=== PATIENT | female | born 1990 | race Caucasian/White ===

== ENCOUNTER → 2019-02-11 13:51 | Outpatient (CLI) | payer MEDICAID, SELFPAY ==
[2019-02-11 09:33] VITALS: BMI 19.6
[2019-02-11 18:17] LABS: Chlamydia Trachomatis by PCR Negative (Negative); Neisserai gonorrhoeae by PCR Negative (Negative); Probe Check PASS; Sample Adequacy Control PASS; Specimen Processing Control PASS
[2019-02-18 10:35] LABS: HPV Reflexed? NOT INDICATED
== END ==
PROVIDERS: PCP Family Medicine; Visit Provider Nurse Practitioner Women's Health
DX: Z11.3 Encounter for screening for infections with a predominantly sexual mode of transmission (principal); Z12.4 Encounter for screening for malignant neoplasm of cervix
CPT/HCPCS: 87491; 87591; 88175; G0145

== ENCOUNTER 2020-10-19 21:34 | Emergency (ER) | payer MEDICAID, SELFPAY ==
[2019-05-06 10:13] VITALS: BMI 20.3
[2020-10-19 21:36] VITALS: BP 128/84; PULSE 96; RESP 14; TEMP 36.8; O2SAT 100; BMI 21.0
[2020-10-19] MEDS: MethylPREDNISolone 125 MG/2 ML Vial IV (21:57)
[2020-10-19] MEDS: DiphenhydrAMINE 50 MG/ML Syringe 12.5 MG IV (21:57)
[2020-10-19] MEDS: Famotidine 200 MG/20 ML MDV 20 MG in 0.9% Normal Saline (Pres. free 8 ML 300 MG IV (21:59)
--- NOTE | 2020-10-19 22:04 | EX.ED.DYSGE1 ---
HPI History of Present Illness Chief Complaint: Allergic Reaction Informant: patient Narrative Narrative: 30-year-old female was eating celery that was on a plate with some dry rubs chicken wings. She states that she has a peanut allergy but has had the celery at this restaurant before. She began to itch on her palms and her feet and vomited and now states that she has diffuse erythematous rash across her body. She took 50 mg of Benadryl just prior to arrival here in the emergency department [facility], [facility] PFS Home Medications loratadine 10 mg tablet 10 mg PO DAILY 02/11/19 [History Last Taken Unknown] albuterol sulfate 90 mcg/actuation aerosol inhaler 1 inh INHALATION ONCE 05/06/19 [History Last Taken Unknown] levonorgestrel 14 mcg/24 hrs (3 yrs) 13.5 mg intrauterine device 1 device INTRAUTERINE ONCE 05/06/19 [History Last Taken Unknown] prednisone 60 mg PO DAILY #12 tablet 10/19/20 [Rx Last Taken Unknown] Allergy/AdvReac Type Severity Reaction Status Date / Time acetaminophen Allergy Mild nausea, Verified 10/19/20 21:35 watery mouth peanut Allergy Hives Verified 10/19/20 21:35 Family History Mother Thyroid disorder Social History Smoking Status: Never smoker alcohol intake: current details: occasionally substance use type: does not use caffeine: Yes what type of physical activity do you participate in: running frequency: 1-2 times per week seatbelt use: always do you feel safe at home: Yes additional social history: Single-[employer]/[place] ROS ROS ED Constitutional Constitutional ED: Denies chills or weight loss Eyes Eyes: Denies change in vision or diplopia ENT ENT ED: Denies ear pain, rhinorrhea or sore throat Cardiovascular Cardiovascular: Denies chest pain, orthopnea, palpitations or racing heartbeat Respiratory/Chest Respiratory/Chest: Denies cough, dyspnea or orthopnea Gastrointestinal Gastrointestinal: Denies abdominal pain, diarrhea, nausea or vomiting Genitourinary Genitourinary ED: Denies dysuria, hematuria or urinary frequency Musculoskeletal Musculoskeletal: Denies arthralgias or myalgias Integumentary Reports rash; Denies abscess Neurologic Neurologic: Denies headache(s) or weakness Psychiatric Psychiatric: Denies anxiety, depression, suicidal ideation or suicidal thoughts Endocrine Endocrinology: Denies polydipsia, polyphagia or polyuria Allergic/Immunologic Allergic/Immunologic ED: Denies mouth swelling, tongue swelling or urticaria EXAM Physical Exam Const Vital Signs: 10/19/20 21:36 10/19/20 22:34 Temperature 98.2 F Temperature Source Oral Pulse Rate 96 81 Respiratory Rate 14 17 Blood Pressure 128/84 H 109/74 Blood Pressure Mean 98 85 Pulse Ox 100 100 Oxygen Delivery Method Room Air Room Air Positive well nourished and well developed General Appearance ED: well developed HEENT Reports normocephalic, head/scalp atraumatic and moist mucous membranes HEENT Narrative: I do not appreciate any uvular or tongue swelling. Eyes PERRL and EOMs intact bilaterally Eyes Narrative: Injected conjunctiva Neck no lymphadenopathy, supple and no JVD Resp normal respiratory effort and clear to auscultation bilaterally Cardio regular rate, regular rhythm and no murmurs GI normal to inspection, nondistended, normoactive bowel sounds and non-tender Palpation: soft Back/Spine no CVA tenderness and normal ROM Extremity normal to inspection General Extremety ED: Negative for edema General Extremity: Negative for edema Neuro oriented x3 and CN's II-XII intact bilaterally Sensorium / Orientation: alert Motor Exam: strength 5/5 throughout Psych mental status grossly normal Mood & Affect: Negative for depressed or tearful Skin no wounds Skin Narrative: Patient has a diffuse erythematous rash across her body extending down to the arms and the legs MDM MDM MDM Narrative Medical decision making narrative: Patient received Pepcid Solu-Medrol and Benadryl here in the department. She was observed. At 90 minutes of observation the patient's no longer having any rash. She is breathing normally. There is no facial swelling or oropharyngeal swelling. She will be observed an additional 30 minutes and if doing well we can discharge her home. I will write for her to have prednisone at home continued Benadryl return if worsening or concerns Discharge Plan Triage Chief Complaint: Allergic Reaction ED Provider: Jewel Canas Dx/Rx/DC Orders Clinical Impression: Allergic reaction to food Instructions: ED Food Allergy Prescriptions: New prednisone 20 MG tablet 60 mg PO DAILY Qty: 12 RF: 0 No Action loratadine 10 mg tablet 10 mg PO DAILY RF: 0 Rosaline 14 mcg/24 hrs (3 yrs) 13.5 mg intrauterine device 1 device intrauterine ONCE RF: 0 albuterol sulfate [ProAir HFA] 90 mcg/actuation HFA aerosol inhaler 1 inh INHALATION ONCE RF: 0 Primary Care Provider: Jessica Cedeno Referrals: Jessica Cedeno MD [Primary Care Provider] - As Needed
[2020-10-19 22:34] VITALS: BP 109/74; PULSE 81; RESP 17; O2SAT 100
[2020-10-19 23:35] VITALS: BP 111/96; PULSE 83; RESP 14; O2SAT 99
== END 2020-10-19 23:36 | disposition home or self-care (01) ==
PROVIDERS: Emergency Provider Emergency Medicine; PCP Family Medicine
DX: T78.1XXA Other adverse food reactions, not elsewhere classified, initial encounter (principal); X58.XXXA Exposure to other specified factors, initial encounter
CPT/HCPCS: 96374; 96375; 99284; J7030; A4216; J3490

== ENCOUNTER 2021-09-15 15:00 | Outpatient (RCR) | payer MEDICAID, SELFPAY ==
--- NOTE | 2021-08-16 16:08 | HP.PTEVAL ---
Patient's Visit Information YUMIKO SOSA is a 31 year old F referred to Physical Therapy by ROSHNI Albrecht with a diagnosis of L knee patellofemoral syndrome. Date of Evaluation: 08/16/21 Physical Therapist: Jairo Cobb, PT, ATC - Visit Plan Frequency: 2-3x /Week Duration: 2-4 Weeks Plan: Issue and instruct pt on HEP of LE stretching and core strenthening - Subjective L knee has been sore for over one month. Pt reports she has been a runner ever since high school, and notes she believes this may be what has been causing her pain. Pt reports her L knee pain is always on the lateral aspect of he3r L knee. Pt denies PMHx of this type of pain. No tingling or numbness in L LE. No sleep difficulty at this time secondary to pain. 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 Pt reports there are a lot of steps at work which she has to negotiate often. Pt reports her major complaint is that she would like to be able to run again at this time without being limited secondary to pain. L knee does not pop/click/locj up/or give out. Pt reports she did have xrays at that time which revealed no sig. findings. 0/10 pain while sitting here at rest, 8/10 pain at worst - Pain L knee Pain Intensity (Out of 10): 0 Pain Intensity Range: 8 - Objective Neuro: B LE sensation is WNL to light touch. B patellar reflex= 2/3. Palpation: Pt is sore with pressure on her L patella. No obvious deformity at this time. No crepitus with AROM. ROM: R knee 0-150, L knee 0-150. MMT: R knee flex= 26, ext= 29; L knee flex= 26, ext= 30 #F. Special tests: Pos Mcconnels sign, pos 90/90, Pos Trendelenburg sign - Balance/Special Test Scores Lower Extremity Functional Score: 64 - Goals Goal 1:: I with a HEP of LE stretching and core strenthening Goal Time Frame: 2-4 Weeks Goal 2:: Increase L LE strength x 5 #F to aid with stair negotiation Goal Time Frame: 2-4 Weeks - Rehabilitation Potential Physical Therapy Diagnosis: L knee pain and limited flexibility secondary to patellofemoral syndrome Rehabilitation Potential: Good - Anticipated Interventions Patient/Client Instruction: Educate patient on: Condition, Plan of Care For the Purpose of:: To improve self management Therapeutic Exercise to Include: Strength training, Endurance training, Balance training, Flexibilty training, Dynamic Lumbar Stabilization For the Purpose of:: To decrease pain, To increase ROM, To improve muscle performance and motor function Thank you for the opportunity to evaluate your patient. For Medicare and Medicare HMO plans, please review the plan of care and approve it. It will need to be FAXED BACK to us at [phone] for Medicare purposes. For Medicare only, by signing this I certify the plan of care. Please let me know if there are questions or concerns regarding this plan of care. Physician Signature: Date:
--- NOTE | 2021-09-15 15:26 | HP.PTDCSUM ---
It has been my pleasure to treat YUMIKO SOSA referred by ROSHNI Albrecht, with the diagnosis of L knee patellofemoral syndrome for a total of 4 visit(s). Discharge Date: Please see the following information for a summary of their discharge status. Subjective: I dont have any pain today. L knee Pain Intensity (Out of 10): 0 % Improvement: 95 Objective/Function: 0/10 pain this date. L knee flex= 30, ext= 30 #F. Pt is I with HEP. Rx goals achieved Goal 1:: I with a HEP of LE stretching and core strenthening Goal Progress: Goal Met Goal 2:: Increase L LE strength x 5 #F to aid with stair negotiation Goal Progress: Goal Met Plan: Discharge If there are questions or concerns regarding this patient's physical therapy, please feel free to call me at [phone]. Thank you for the referral of this patient. Sincerely, Jairo Cobb, PT, ATC Balance/Gait/Functional tests - Balance/Special Test Scores Oswestry Low Back Score: 0 Lower Extremity Functional Score: 64
== END 2021-09-15 19:00 | disposition home or self-care (01) ==
LOC: PT 15:00
PROVIDERS: PCP Family Medicine; Referring Provider Physician Assistant; Visit Provider Physician Assistant
DX: M22.2X2 Patellofemoral disorders, left knee (principal)
CPT/HCPCS: 97110; 97161; 97164

== ENCOUNTER → 2022-03-14 | Outpatient (CLI) | payer MEDICAID, SELFPAY ==
[2022-03-26 16:13] LABS: HPV APTIMA, High Risk Negative (Negative)
== END | disposition home or self-care (01) ==
LOC: LABSPEC 16:33
PROVIDERS: PCP Family Medicine; Visit Provider Nurse Practitioner Women's Health
DX: Z12.4 Encounter for screening for malignant neoplasm of cervix (principal)
CPT/HCPCS: 87624; 88175; G0145

== ENCOUNTER 2024-04-10 12:07 | Emergency (ER) | payer MEDICAID, SELFPAY ==
[2024-04-10 12:08] VITALS: BP 134/90; PULSE 93; RESP 16; TEMP 36.8; O2SAT 100; BMI 20.2
--- NOTE | 2024-04-10 12:54 | CT_ITS ---
STUDY: CT BRAIN WITHOUT CONTRAST REASON FOR EXAM: Female, 34 years old. 34-year-old female no signal past medical history. Was drinking on Saturday fell hit her head. Said she has had some dizziness and headache posteriorly since that time. Was seen in urgent care and referred to the emergency department. She cannot remember if she lost consciousness. There is no family history of intracranial bleeds or aneurysms. She has no weakness or numbness to her upper or lower extremities. No neck pain RADIATION DOSAGE (If Supplied By Facility): CTDIvol = ( 47.06 ) mGy, DLP = ( 890.33 ) mGycm TECHNIQUE: Transaxial CT imaging of the brain was performed without administration of intravenous contrast material. Individualized dose optimization techniques were used for this CT. COMPARISON: None. FINDINGS: Major intracranial venous sinuses: No abnormal hyperdensity MCA and basilar arteries assessment: No abnormal hyperdensity No visualized extra-axial fluid collection or subdural hemorrhage. Normal soft tissue structures. Normal calvarium. There is asymmetry of the ventricles consistent with an anatomic variant. Normal white matter tracts of the cerebral hemispheres. Normal basal ganglia and thalami. Normal brainstem. Normal cerebellum. There is no intracranial hemorrhage. There are no findings of an acute ischemic infarction. Moderate size mucus retention cyst noted in the left maxillary sinus. CT/Brain/Head without Contrast IMPRESSION: 1. Normal unenhanced CT scan of the brain. Recommendations: * Unresolved symptoms should be further assessed/pursued with neurology consult and evaluation * Advanced imaging including brain MRI, CTA, and CT brain perfusion should also be obtained if there are concerns for acute ischemia, possible malignancy, and other concerning processes or if clinical symptoms remain unresolved or worsen. Electronically Signed: Ruben Wolfe MD at 13:27 EST ,
--- NOTE | 2024-04-10 12:54 | EX.ED.DYSGE1 ---
HPI History of Present Illness Chief Complaint: Head Injury Informant: patient Onset/Context/Timing Onset: Days Context: Sudden Onset Timing: Continuous Current Severity: Mild Maximum Severity: Mild Narrative Narrative: 34-year-old female no signal past medical history. Was drinking on Saturday fell hit her head. Said she has had some dizziness and headache posteriorly since that time. Was seen in urgent care and referred to the emergency department. She cannot remember if she lost consciousness. There is no family history of intracranial bleeds or aneurysms. She has no weakness or numbness to her upper or lower extremities. No neck pain. Prior similar symptoms: Yes Recent Illness/Hospitalization: No PFSH PFS Medical History Asthma Seasonal allergies Home Medications ?Medication ?Instructions ?Recorded ?Last Taken ?Type loratadine 10 mg tablet 10 mg PO DAILY 02/11/19 Unknown History albuterol sulfate 90 mcg/actuation 1 inh inhalation ONCE 05/06/19 Unknown History aerosol inhaler (ProAir HFA) meloxicam 15 mg tablet 15 mg PO DAILY #30 tabs 08/09/21 Unknown Rx Allergy/AdvReac Type Severity Reaction Status Date / Time peanut Allergy Hives Verified 04/10/24 12:10 acetaminophen AdvReac Mild nausea, Verified 04/10/24 12:10 watery mouth doxycycline AdvReac Mild Vomiting Verified 04/10/24 12:10 Family History Mother Thyroid disorder Surgical History [place] teeth extracted Social History Smoking Status: Current some day smoker tobacco type: cigarettes alcohol intake: current details: occasionally substance use type: does not use caffeine: Yes what type of physical activity do you participate in: running frequency: 1-2 times per week seatbelt use: always do you feel safe at home: Yes additional social history: Single-[email or web address] ROS ROS ED ROS Narrative Headache no recent illness. No nausea or vomiting. No visual change. Constitutional Constitutional ED: Denies chills or fever(s) Eyes Eyes: Denies blurry vision ENT ENT ED: Denies ear pain Cardiovascular Cardiovascular: Denies chest pain Respiratory/Chest Respiratory/Chest: Denies cough or dyspnea Gastrointestinal Gastrointestinal: Denies abdominal pain Genitourinary Genitourinary ED: Denies dysuria or hematuria Musculoskeletal Musculoskeletal: Denies arthralgias Integumentary Denies abscess Neurologic Neurologic: Reports headache(s); Denies paresthesias or weakness Psychiatric Psychiatric: Denies anxiety or depression Endocrine Endocrinology: Denies cold intolerance Hematologic/Lymphatic Hematologic/Lymphatic: Reports none Allergic/Immunologic Allergic/Immunologic ED: Denies mouth swelling, tongue swelling or urticaria EXAM Physical Exam Narrative Exam Narrative: Well-appearing 34-year-old female. Vital signs stable afebrile. H EENT exam pupils round reactive light extra motions are intact. No signs of trauma to her face or scalp. Nontender no edema. No bruising or lacerations. TMs are normal bilaterally. No hemotympanum. No dental injury. Neck nontender full range of motion. Full flexion extension. Trachea midline. Back and spine nontender. Lungs clear. Heart regular rhythm no murmur. Chest wall ribs nontender. Abdomen soft nontender. Moving all 4 extremities. 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 Dorsi plantarflexion intact. Normal range of motion. No deformity or tenderness. Neurologically she is awake and alert. GCS of 15. Fingertip to nose within normal limits. No drift of either upper or lower extremities. Normal commercial real estate paralegal strength. Normal dorsi plantarflexion. Const Vital Signs: 04/10/24 12:08 04/10/24 12:51 Temperature 98.2 F Temperature Source Oral Pulse Rate 93 Respiratory Rate 16 Respiratory Effort Normal Respiratory Depth Normal Respiratory Pattern Normal Blood Pressure 134/90 H Blood Pressure Mean 104 Pulse Ox 100 Oxygen Delivery Method Room Air Room Air Positive well nourished and well developed; Negative for obese, cachectic, contractures or unkempt General Appearance ED: well developed and NAD; Negative for unkempt, cachectic, contractures, cyanotic, diaphoretic or pallor Nutritional Appearance: Negative for cachectic or obese HEENT Reports moist mucous membranes Eyes PERRL and EOMs intact bilaterally Neck no lymphadenopathy, supple and no JVD Chest Wall inspection of chest normal and palpation of chest normal Resp normal respiratory effort and clear to auscultation bilaterally Cardio regular rate, regular rhythm, S1 normal heart sound and no murmurs; Negative for S2 normal heart sound Palpation: Negative for palpable S3 or palpable S4 Rate: Negative for bradycardia or tachycardic GI normal to inspection, nondistended, normoactive bowel sounds, non-tender, non-distended and no masses Palpation: soft; Negative for tender, guarding, splenomegaly or rebound tenderness present Back/Spine no CVA tenderness General Back: Negative for CVA tenderness Cervical Spine: Negative for cervical spine tenderness Thoracic Spine / Upper Back: Negative for thoracic spinal tenderness or paraspinal muscle tenderness Lumbar Spine / Lower Back: Negative for lumbar spinal tenderness Extremity normal to inspection General Extremety ED: Negative for edema, tenderness or other findings General Extremity: Negative for edema or other findings Neuro Sensorium / Orientation: alert; Negative for orientation impaired, lethargic or stuporous Motor Exam: strength 5/5 throughout; Negative for general weakness or strength abnormal Psych mental status grossly normal Appearance: Negative for unkempt Attitude: No agitated Mood & Affect: Negative for depressed, anxious or tearful Skin no rashes or lesions noted, no wounds and skin turgor normal General Skin Exam: elasticity normal; Negative for jaundice or pallor Lesions: No lesion noted Rashes: No rashes noted Trauma: Negative for abrasion Wounds: Negative for wounds noted MDM MDM MDM Narrative Medical decision making narrative: 34-year-old female fall head injury suspect concussion. CAT scan being obtained due to the persistent headache. Neurologic exam normal. I do not think she needs any lab work. Repeat exam patient doing well at 1:42 PM. We went over her CAT scan results. Her exam is unchanged and normal extremity discharged to home. Treated as an concussion. History & Record Review Discussion w/independent historian: Patient and Family Radiography Diagnostic Testing: Clinical Impression(s) from Imaging Studies Brain CT 04/10/24 12:54 IMPRESSION: 1. Normal unenhanced CT scan of the brain. Recommendations: * Unresolved symptoms should be further assessed/pursued with neurology consult and evaluation * Advanced imaging including brain MRI, CTA, and CT brain perfusion should also be obtained if there are concerns for acute ischemia, possible malignancy, and other concerning processes or if clinical symptoms remain unresolved or worsen. Electronically Signed: Ruben Wolfe MD at 13:27 EST Reading Location ID and State: [facility] / [place] , Service support , Discharge Plan Triage Chief Complaint: Head Injury ED Provider: Han Lock Dx/Rx/DC Orders Clinical Impression: Closed head injury, Concussion Instructions: ED Concussion, ED Head Injury (Adult) Prescriptions: No Action loratadine 10 mg tablet 10 mg PO DAILY albuterol sulfate [ProAir HFA] 90 mcg/actuation HFA aerosol inhaler 1 inh INHALATION ONCE meloxicam 15 mg tablet 15 mg PO DAILY Qty: 30 0RF Primary Care Provider: Jessica Cedeno Referrals: Jessica Cedeno MD [Primary Care Provider] - 10-14 Days if not better Activity Restrictions/Additional Instructions: Plenty of fluids and rest. Tylenol and Motrin for pain. Symptoms may persist for weeks. They should progressively start getting better if not follow-up with your doctor. Print Language: Angolan Disposition Disposition: Home, Self Care
[2024-04-10 13:42] VITALS: BP 134/90; PULSE 93; RESP 16; TEMP 36.8; O2SAT 100
== END 2024-04-10 13:57 | disposition home or self-care (01) ==
LOC: ED 13:07
PROVIDERS: Emergency Provider Emergency Medicine; PCP Family Medicine; Visit Provider Emergency Medicine
DX: S06.0X0A Concussion without loss of consciousness, initial encounter (principal); F17.210 Nicotine dependence, cigarettes, uncomplicated; J45.909 Unspecified asthma, uncomplicated; X58.XXXA Exposure to other specified factors, initial encounter
CPT/HCPCS: 70450; 99282